=== PATIENT | male | born 1985 | race American Indian/Alaskan Native ===

== ENCOUNTER 2017-05-14 15:06 | Emergency (ER) | payer MEDICAID, OTHER ==
[2017-05-14 15:15] VITALS: BP 133/82; RESP 15; O2SAT 98
--- NOTE | 2017-05-14 16:03 | C.PDOC ---
History Of Present Illness Patient presents to ED c/o pain to left lower molar since yesterday. Patient states he was chewing a steak yesterday, and the tooth broke more (was already previously fractures). He denies fever, trauma, drainage, sore throat, SOB, bleeding. Time Seen by Provider: 05/14/17 15:22 Chief Complaint (Nursing): Dental Pain History Per: Patient History/Exam Limitations: no limitations Onset/Duration Of Symptoms: Days (2) Current Symptoms Are (Timing): Still Present Severity: Moderate Quality: Positive for: "Pain" Past Medical History Reviewed: Historical Data, Nursing Documentation, Vital Signs Vital Signs: Last Vital Signs Temp 98.5 F 05/14/17 16:38 Pulse 94 H 05/14/17 16:38 Resp 15 05/14/17 15:13 BP 133/82 05/14/17 15:13 Pulse Ox 98 05/14/17 16:12 - Medical History PMH: No Chronic Diseases Family History: States: No Known Family Hx - Social History Hx Alcohol Use: Yes Hx Substance Use: No Review Of Systems Except As Marked, All Systems Reviewed And Found Negative. Constitutional: Negative for: Fever, Chills ENT: Positive for: Other (left sided dental pain ) Cardiovascular: Negative for: Chest Pain Respiratory: Negative for: Cough, Shortness of Breath Skin: Negative for: Rash Neurological: Negative for: Weakness Physical Exam - Physical Exam Appears: Well, Non-toxic, In Acute Distress (in moderate pain ) Skin: Normal Color, Warm, Dry, No Rash Oral Mucosa: Moist, No Drooling Tongue: Normal Appearing Lips: Normal Appearing Teeth: Tender To Palpation, Other (tooth #18 fractured at medial aspect, (+) TTP , no surrounding erythema) Gingiva: Normal Appearing, No Erythema Cardiovascular: Rhythm Regular Respiratory: Normal Breath Sounds, No Rales, No Rhonchi, No Wheezing Neurological/Psych: Oriented x3 ED Course And Treatment O2 Sat by Pulse Oximetry: 98 (RA) Pulse Ox Interpretation: Normal Progress Note: Patient given PO Vicodin, Naprosyn and Peniciillin VK. Pharmacy contacted - state we do not have calcium hydroxide or other dental filler available here at [facility]. Patient given Rxs for Naprosyn, Vicodin and PenVK, and instructed to follow up with dentist in 1-2 days. He understands he should return to ED immediately if symptoms worsen. Reevaluation Time: 16:35 Reassessment Condition: Improved Disposition - Disposition Referrals: [facility] [Outside] Disposition: HOME/ ROUTINE Disposition Time: 16:35 Condition: STABLE Additional Instructions: FOLLOW UP WITH DENTIST IN 1-2 DAYS USE MEDICATIONS DIRECTED RETURN TO ER IF SYMPTOMS WORSEN Prescriptions: Hydrocodone/Acetaminophen [Hydrocodon-Acetaminophen 5-325] 1 each PO Q6 PRN #15 tablet PRN Reason: Pain, Moderate (4-7) Naproxen [Naprosyn] 1 tab PO BID PRN #25 tab PRN Reason: Pain Penicillin VK [Penicillin VK Tab] 500 mg PO TID #42 tab Instructions: Acute Dental Trauma (ED), Toothache (ED) Forms: [employer] (Czech) Print Language: MONTENEGRIN - Clinical Impression Clinical Impression: Tooth fracture, Pain, dental
[2017-05-14] MEDS ORDERED: Naproxen 550 mg Tab PO STA (16:12)
[2017-05-14] MEDS ORDERED: Hydrocodone/Acetaminophen 5 mg /300 mg Tab PO STA (16:13)
[2017-05-14] MEDS ORDERED: Naproxen 550 mg Tab PO ONE (16:24)
[2017-05-14] MEDS ORDERED: Hydrocodone/Acetaminophen 5 mg /300 mg Tab PO ONE (16:25)
[2017-05-14 16:39] VITALS: PULSE 94; TEMP 98.5
== END 2017-05-14 16:38 | disposition home or self-care (01) ==
LOC: C.ER 15:06
DX: S02.5XXD Fracture of tooth (traumatic), subsequent encounter for fracture with routine healing (principal); X58.XXXD Exposure to other specified factors, subsequent encounter

== ENCOUNTER 2017-05-17 19:05 | Emergency (ER) | payer MEDICAID, OTHER ==
[2017-05-17 19:18] VITALS: BMI 22.4
[2017-05-17 19:24] VITALS: BP 126/84; RESP 18; TEMP 98.1; O2SAT 98
--- NOTE | 2017-05-17 19:53 | C.PDOC ---
History Of Present Illness 31 year old male presents to ED with complaints of left lower jaw pain and swelling for approximately 2-3 days. He was seen in the ED two days ago for similar complaints. Patient notes he has not filled his prescriptions but has taken one Vicodin with no relief. He denies fever, weakness, or numbness. Time Seen by Provider: 05/17/17 19:26 Chief Complaint (Nursing): Dental Pain History Per: Patient History/Exam Limitations: no limitations Onset/Duration Of Symptoms: Days (2-3 days ) Current Symptoms Are (Timing): Still Present Quality: Positive for: Sharp, Other (throbbing pain ) Recent travel outside of the [place]: No Past Medical History Reviewed: Historical Data, Nursing Documentation, Vital Signs Vital Signs: Last Vital Signs Temp 98.1 F 05/17/17 19:19 Pulse 61 05/17/17 20:16 Resp 18 05/17/17 20:16 BP 126/84 05/17/17 19:19 Pulse Ox 98 05/17/17 21:33 Family History: States: Unknown Family Hx - Social History Hx Alcohol Use: Yes Hx Substance Use: No - Immunization History Hx Tetanus Toxoid Vaccination: No Hx Influenza Vaccination: No Hx Pneumococcal Vaccination: No Review Of Systems Constitutional: Negative for: Fever, Chills ENT: Positive for: Other (left sided tooth pain ) Cardiovascular: Negative for: Chest Pain Respiratory: Negative for: Shortness of Breath Gastrointestinal: Negative for: Nausea, Vomiting Neurological: Negative for: Weakness, Numbness Physical Exam - Physical Exam Appears: Non-toxic, No Acute Distress Skin: Warm, Dry Head: Atraumatic, Normacephalic Eye(s): bilateral: Normal Inspection Oral Mucosa: Moist Tongue: Normal Appearing, No Swelling Lips: Normal Appearing, No Swelling Teeth: No Loose, Other (Left lower molar with fracture and tender to percussion) Gingiva: Normal Appearing, No Erythema Throat: Normal, No Erythema, No Exudate Neck: Supple Chest: Symmetrical Cardiovascular: Rhythm Regular Respiratory: Normal Breath Sounds Neurological/Psych: Oriented x3, Normal Speech Gait: Steady ED Course And Treatment O2 Sat by Pulse Oximetry: 98 (room air ) Pulse Ox Interpretation: Normal Progress Note: Patient was given penicillin VK. Instruct patient to fill prescriptions for antibiotics and pain medicine and instruct to follow up with Dentist Disposition Counseled Patient/Family Regarding: Diagnosis, Need For Followup - Disposition Referrals: Clinic,Med Surg [Primary Care Provider] - Disposition: HOME/ ROUTINE Disposition Time: 19:52 Condition: STABLE Additional Instructions: Please make sure to fill your prescriptions and follow up with Dentist or dental clinic Instructions: Toothache (ED) Forms: [employer] (Wolof), [facility] - POA Present On Arrival: None - Clinical Impression Clinical Impression: Tooth fracture, Pain, dental - Scribe Statement The provider has reviewed the documentation as recorded by the Scribkody Lowe All medical record entries made by the Melitonibkody were at my direction and personally dictated by me. I have reviewed the chart and agree that the record accurately reflects my personal performance of the history, physical exam, medical decision making, and the department course for this patient. I have also personally directed, reviewed, and agree with the discharge instructions and disposition.
[2017-05-17 20:17] VITALS: PULSE 61
== END 2017-05-17 20:17 | disposition home or self-care (01) ==
LOC: SUPCPDRO 19:05 → C.ER 19:05
DX: K08.89 Other specified disorders of teeth and supporting structures (principal); S02.5XXD Fracture of tooth (traumatic), subsequent encounter for fracture with routine healing; X58.XXXD Exposure to other specified factors, subsequent encounter